=== PATIENT | female | born 1985 | race Hispanic/Latino ===

== ENCOUNTER 2019-10-05 20:58 | Inpatient (IN) | payer OTHER, SELFPAY ==
--- NOTE | 2019-10-05 21:00 | PC.NURSE ---
Pt arrived via ambulance, transfer from [facility] ED. Pt was 5cm in the ED at [facility]. Pt is Mongolian speaking only. 15yr old daughter with her to help translate. Avis used to translate upon admission. [facility] denies having information.
[2019-10-05] MEDS: AMPICILLIN 2 GM/NS 100 ML 2 GM/100 ML BAG IVPB (21:41)
[2019-10-05] MEDS: LACTATED RINGERS 1,000 ML 125 ML IV CONT (21:49)
[2019-10-05 22:02] VITALS: BP 105/80; PULSE 78
[2019-10-05 22:24] VITALS: BMI 29.9
--- NOTE | 2019-10-05 22:27 | LDADM ---
This patient, Pauline Lindsay, was admitted to Labor/Delivery/Recovery 105 on 10/05/19 at 20:58. Plans for labor, pain management and were discussed with patient. Patient/family oriented to hospital policies and general routines including ID bracelet, bed and alarms, visiting hours, pain management, procedures, bathroom and other care routines, personal items, smoking policy, room service/diet and guest tray routines, security routines, and visiting hours. Patient/Family are encouraged to report perceived risks to care and to ask questions if they do not understand what they are told or what they should do. See OBIX for further documentation.
[2019-10-05 22:33] LABS: Basophils Percent Auto 0.2 % (0.2-1.2); Eosinophils Percent Auto 0.4 % (0-4.4); Hematocrit 31.6 % (37.0-47.0); Hemoglobin 10.3 g/dL (12.0-15.0); Immature Granulocyte Absolute 0.09 K/mm3 (0.00-0.031); Immature Granulocyte Percent A 1.6 % (0-0.5); Lymphocytes Absolute Auto 1.13 K/mm3 (0.9-3.2); Lymphocytes Percent Auto 19.9 % (18.3-44.2); Mean Corpuscular HGB Conc 32.6 g/dl (32-36); Mean Corpuscular Hemoglobin 27.5 pg (26-34); Mean Corpuscular Volume 84.5 fl (80-100); Mean Platelet Volume 10.3 fl (7.4-10.4); Monocytes Absolute Auto 0.6 K/mm3 (0.1-0.6); Monocytes Percent Auto 9.9 % (2.6-8.5); Neutrophils Absolute Auto 3.9 K/mm3 (1.3-6.7); Platelet Count Result 402 k/mm3 (150-375); Red Blood Count 3.74 M/mm3 (4.2-5.4); Red Cell Distribution Width 15.1 % (11.5-14.5); White Blood Count 5.7 K/mm3 (4.5-10.0)
--- NOTE | 2019-10-05 22:39 | PC.NURSE ---
Pt states she was seeing a ophthalmic lens inspector for her heart. States something weird was happening with it. States at last appointment they said everything was fine and nothing was wrong. States she has an upcoming appointment.
[2019-10-05 22:53] VITALS: BP 109/75; PULSE 77
[2019-10-05 23:01] VITALS: BP 114/82; PULSE 82
[2019-10-05 23:29] LABS: HIV 1/2 Ab P24 Ag Result Negative (Negative)
[2019-10-05 23:30] VITALS: TEMP 36.3
[2019-10-05 23:31] VITALS: BP 105/73; PULSE 75
[2019-10-05 23:46] LABS: Rubella IgG Antibody 20.9 IU/ML
[2019-10-05 23:49] LABS: Hepatitis B Surface Antigen Negative (Negative)
[2019-10-06] VITALS (21 sets, daily range): BP systolic 98–128; BP diastolic 52–85; PULSE 57–78; RESP 12–18; TEMP 36.4–37; O2SAT 98
[2019-10-06] MEDS: AMPICILLIN 1 GM/NS 50 ML 1 GM/50 ML BAG IVPB (01:46)
[2019-10-06] MEDS: OXYTOCIN 30 UNITS/NS 500 ML 30 UNITS/500 ML BAG 999 UNITS IV CONT (04:30)
--- NOTE | 2019-10-06 04:44 | WPDHPUPDATE1 ---
History and Physical Update Update Date/Time: 10/06/19 04:44 History and Physical has been reviewed, including an updated exam of the patient. There are NO changes in the patient's condition. Risks, benefits, and alternatives have been discussed and questions answered. Patient agrees to proceed with procedure.
--- NOTE | 2019-10-06 04:44 | WPDOBADMIT ---
Obstetrics - Admit Note Admission Note: record reviewed. No pertinent additions to the history and/or any subsequent changes in the physical findings that are not consistent with the expected course of the were found. Additions to the history and/or subsequent changes in the physical findings follow. None.
--- NOTE | 2019-10-06 04:45 | P.PCNOB_ITS ---
OB - Delivery Note Procedure events: Labor < 37 Weeks Induction method: none Route of delivery: Laceration description: Vaginal - 2nd Degree Delivery repair: chromic Specimen: Yes (placenta) Estimated blood loss (mL): 200 Anesthesia type: Local Disposition: floor Narrative: Patient prepped and draped in usual manner for this procedure. Maternal expulsive efforts readily delivered vertex on the rest of baby delivered as well. Cord was clamped, placenta delivered spontaneously. Uterus was well contracted. Cervix vagina and vulva were inspected with a second- degree midline laceration noted. This was injected with lidocaine and closed using 2 0 chromic to close the vaginal tissue in a running interlocking manner the deep tissue was approximated in subcuticular layer then used to vomit approximate the skin edges. This point seizure was considered terminated patient are procedure well immediate postop condition mother and baby were both excellent. Baby Weeks of gestation at delivery: 36 gender: Female Weight (pounds): 6 Weight (ounces): 11 score one minute: 9 score five minutes: 9
[2019-10-06] MEDS: OXYTOCIN 30 UNITS/NS 500 ML 30 UNITS/500 ML BAG 125 UNITS IV CONT (05:07)
[2019-10-06] MEDS: ACETAMINOPHEN 325 MG TABLET 650 MG PO (05:46)
--- NOTE | 2019-10-06 07:51 | PC.NURSE ---
0712- called, informed pt delivered vaginally this morning by . No new orders received.
--- NOTE | 2019-10-06 10:46 | PC.NURSE ---
0726-Patient transferred to post room #290 via wheelchair. Support person present. Oriented to unit, room, information board, rooming in, admission packet and security measures. Patient verbalizes understanding.
[2019-10-06 13:34] LABS: Rapid Plasma Reagin Non-Reactive (NonReactive)
[2019-10-07 05:11] LABS: Hematocrit 28.7 % (37.0-47.0); Hemoglobin 9.4 g/dL (12.0-15.0)
[2019-10-07 07:30] VITALS: BP 104/64; PULSE 56; RESP 18; TEMP 36.9; O2SAT 95
--- NOTE | 2019-10-07 07:44 | PM.OBPNVD ---
OB - PN: Subj Subjective Date/time seen: 10/07/19 07:44 34yoHF G5 now P5 s/p NSVVD by Dr Werner on 10/06/19 @0428am of a viable female no complaints Interval history: Desires to go home no complaints will wait for interval tubal sterilization Patient comments: no complaints, pain well controlled, tolerating diet and flatus present [place] baby status: doing well and bottle feeding well [place] feeding status: exclusively bottle feeding OB - PN: Obj Data Labs CBC & Chem 7: 10/07/19 04:48 Labs: Laboratory Results - last 24 hr 10/05/19 10/07/19 22:19 04:48 Hgb 9.4 L Hct 28.7 L RPR Non-reactive OB - PN A/P Plan day: 1 Plan: routine care, discharge home and follow up 6 weeks Time Spent With Patient Time: Total time spent is greater than 50% in coordination of care (as documented) at patient's floor/unit and/or counseling patient: Time with patient: 15 - 25 minutes Review of Systems Review of Systems: All systems reviewed & are unremarkable except as noted in HPI and below Constitutional: Constitutional: Reports as per HPI and Reports no additional constitutional complaints ENT: Reports system reviewed and no additional complaints, except as documented Cardiovascular: Cardiovascular: Reports no additional cardiovascular complaints Respiratory: Respiratory: Reports no additional respiratory complaints Gastrointestinal: Gastrointestinal: Reports no additional gastrointestinal complaints Genitourinary: Genitourinary: Reports no additional female genitourinary complaints Musculoskeletal: Musculoskeletal: Reports no additional musculoskeletal complaints Integumentary/Breasts: Skin/Breast: Reports system reviewed and no additional complaints, except as docu Neurologic: Reports system reviewed and no additional complaints, except as documented Psychiatric: Psychiatric: Reports no additional psychiatric complaints Endocrine: Endocrine: Reports no additional endocrine complaints Hematologic/Lymphatic: Hematologic/Lymphatic: Reports no additional hematologic/lymphatic complaints Allergic/Immunologic: Allergic/Immunologic: Reports no additional allergic/immunologic complaints Exam Const: General: comfortable, no acute distress, alert and awake HENMT: Head: normal to inspection Eyes: General: appearance normal, both eyes and all related structures Neck: Neck: normal visual inspection Chest: Breast/axilla inspection: normal inspection of the breasts Breast/axilla palpation: normal palpation of the breasts Resp: Effort & Inspection: normal respiratory effort Auscultation: clear to auscultation bilaterally Cardio: Rate: regular rate GI: Auscultation: normal bowel sounds : General: Yes no CVA tenderness External Female Exam: normal external appearance Back/Spine/Pelvis: Back: no CVA tenderness Skin: General skin exam: normal color Neuro: General: oriented to person, oriented to place, oriented to time and patient oriented x3 Speech: normal speech Motor exam (neuro): 5/5 motor strength present throughout Sensory Exam: normal sensation Extrem: General: normal to inspection and full ROM Right lower extremity: normal to inspection and full ROM Left lower extremity: normal to inspection and full ROM Psych: Appearance: grossly normal and well kempt Mental Status: mental status grossly normal Affect: normal affect Attitude: cooperative Judgement: Good judgement present (Psych)
--- NOTE | 2019-10-07 08:30 | PM.OBDSVD ---
DS: Admitting Diagnosis Admitting Diagnosis Admitting Diagnosis: Term active labor DS: Discharge Diagnosis Discharge Diagnosis (1) Term delivered: Code(s): O80 - Encounter for full-term uncomplicated delivery Status: Acute OB - DS: Summary OB Procedures : Ultrasound OB Procedures Intrapartum: Spontaneous Vag Delivery OB Procedures: : None Time Spent with Patient Time attestation: Total time spent providing and/or coordinating discharge services:20 min Exam Const: General: comfortable, no acute distress, alert and awake Chest: Breast/axilla inspection: normal inspection of the breasts Resp: Effort & Inspection: normal respiratory effort Cardio: Rate: regular rate GI: GI Palp: Yes Soft to palpation Percussion: Yes normal to percussion Auscultation: normal bowel sounds : General: Yes bladder normal to inspection Psych: Appearance: grossly normal and well kempt DS: Data Data Completed and Pending Pending studies at discharge: Pending at discharge 10/06/19 04:32 Surgical [PTH] Routine Labs on day of discharge: Labs from last 24 hours 10/07/19 10/05/19 04:48 22:19 Hgb 9.4 L Hct 28.7 L RPR Non-reactive Discharge Plan Discharge Attending physician on discharge: Dawit Hamlin Discharging Clinician: Dawit Hamlin Anticipated Discharge Date/Time: 10/07/19 08:29 Patient Disposition: Home, Self-Care Activity: may shower, may drive after 2 weeks and pelvic rest Diet: as tolerated and regular Wound Care Instructions: follow printed instructions Discharge Instructions: OB ANTEPARTUM DISCHARGE INSTRUCTIONS This information is given to help you properly care for yourself at home after your discharge from the hospital. Follow these instructions until your doctor tells you otherwise. DIET: Additional Diet Instructions: ACTIVITY: Additional Activity Instructions: RETURN TO LABOR AND DELIVERY IF YOU HAVE: Additional Reasons to Return to Labor and Delivery: Contractions may feel like abdominal pain, tightening, cramping, pressure, back ache, or thigh ache. 24 Hour Urine Collection: Continue 24 hour urine collection until at . When collection is completed, return specimen to the [facility]. See handout for 24 hour urine collection. OTHER INSTRUCTIONS: FOLLOW-UP CARE: To see in/on Valuables released to patient or family? Medications from home returned to patient? IF YOU HAVE ANY QUESTIONS REGARDING THESE INSTRUCTIONS, PLEASE CALL [phone]. IF PROBLEMS ARISE, CALL YOUR PROVIDER. IF EMERGENCY CARE IS NEEDED, [facility]S EMERGENCY ROOM IS AVAILABLE 24 HOURS A DAY. Stand Alone Forms: General Discharge Information Follow-up/Referrals: Dawit Hamlin MD [Physician] - 3 Weeks Discharge Medications: New polysaccharide iron complex 150 mg iron Capsule 150 mg PO BIDWM Qty: 90 RF: 3 ibuprofen 600 mg Tablet 600 mg PO Q6H PRN (Reason: Cramping) 30 Days Qty: 90 RF: 1 KPN Tablet 1 tab PO DAILY 30 Days Qty: 90 RF: 0 Date of admission: 10/05/19 20:58 Primary Care Provider: Adán,Eusebio Admitting Provider: Dawit Hamlin Attending physician on admission: Dawit Hamlin Condition: Stable
[2019-10-07] MEDS: DOCUSATE SODIUM 100 MG CAPSULE PO (08:41)
[2019-10-07] MEDS: IBUPROFEN 600 MG TABLET PO (08:41)
[2019-10-07] MEDS: MULTIVIT/MIN/PREN/FOL AC/IRON TABLET 1 TAB PO (08:41)
[2019-10-07] MEDS: POLYSACCHARIDE IRON COMPLEX 150 MG CAPSULE PO (08:41)
--- NOTE | 2019-10-07 18:56 | PC.NURSE ---
1320 Pt's reeceugher translated discharge instructions for pt as nurse read through them; pt voiced understanding.
[2019-10-08 09:31] VITALS: BP 99/71; PULSE 67; RESP 16; TEMP 36.5; O2SAT 99
== END 2019-10-07 14:11 | disposition home or self-care (01) | DRG 560 ==
LOC: ANHLDR 22:33 → ANHOB2 10-06 07:34
PROVIDERS: Admitting Provider Obstetrics & Gynecology; PCP Registered Nurse; Visit Provider Obstetrics & Gynecology
DX: O60.14X0 Preterm labor third trimester with preterm delivery third trimester, not applicable or unspecified (principal); Z37.0 Single live birth; Z3A.36 36 weeks gestation of pregnancy; O70.1 Second degree perineal laceration during delivery; O77.0 Labor and delivery complicated by meconium in amniotic fluid
CPT/HCPCS: 36415; 85014; 85018; 85025; 86592; 86703; 86762; 86850; 86900; 86901; 87340; 88307; A9270; G0432; J0290; J2590; J3010; J7120

== ENCOUNTER 2025-03-02 12:24 | Emergency (ER) | payer SELFPAY ==
--- NOTE | ~2025-03-02 | XR_ITS ---
EXAMINATION: XR chest 2V, 03/02/2025 13:02 EMBOSSING MACHINE OPERATOR HISTORY: midsternal chest pain X today COMPARISON: No comparisons available. Technique: 2 views obtained. Findings: The lungs are clear, no effusion. No pneumothorax. Heart is normal size. Mediastinal and hilar contours are within normal limits. Bony thorax no acute abnormality. Impression: No acute cardiopulmonary abnormality. Reviewed, dictated and finalized at location P. SSING MACHINE OPERATOR Impression: No acute cardiopulmonary abnormality.
--- NOTE | 2025-03-02 12:27 | ECG_ITS ---
Test Date: 2025-03-02 12:43:06 Measurements Intervals [place] Rate: 76 P: 41 MT: 173 QRS: 15 QRSD: 71 T: 12 QT: 350 QTc: 396 Interpretive Statements SINUS RHYTHM NONSPECIFIC T-WAVE ABNORMALITY POOR R-WAVE PROGRESSION ABNORMAL ECG No previous ECG available for comparison Electronically Signed On 03-02-2025 13:58:04 PLASTIC SHEETING CUTTER by Enmanuel Sierra M.D.
[2025-03-02 12:45] VITALS: BP 118/75; PULSE 72; RESP 17; TEMP 36.4; O2SAT 100
[2025-03-02 13:04] LABS: Hematocrit 40.4 % (37.0-47.0); Hemoglobin 13.3 g/dL (12.0-15.0); Immature Granulocyte Percent A 0.4 % (0-0.5); Lymphocytes Absolute Auto 1.78 K/mm3 (0.9-3.2); Mean Corpuscular HGB Conc 32.9 g/dl (32-36); Mean Corpuscular Hemoglobin 29.0 pg (26-34); Mean Corpuscular Volume 88.0 fl (80-100); Nucleated Red Blood Cells Absolute Auto 0.000 K/mm3 (0.0-0.012); Nucleated Red Blood Cells Perc 0.0 % (0.0-0.2); Platelet Count Result 297 k/mm3 (150-375); Red Blood Count 4.59 M/mm3 (4.2-5.4); White Blood Count 5.7 K/mm3 (4.5-10.0)
[2025-03-02 13:10] LABS: INR 1.1; Prothrombin Time 13.7 Seconds (11.1-14.7)
[2025-03-02 13:11] LABS: Alanine Aminotransferase 21 U/L (6-35); Albumin Level 4.2 g/dL (3.5-5.1); Alkaline Phosphatase 84 U/L (38-126); Anion Gap 7 mmol/L (4-12); Aspartate Amino Transferase 27 U/L (14-36); Bilirubin,Total 0.9 mg/dL (0.2-1.3); Blood Urea Nitrogen 13 mg/dL (7-17); Calcium 9.1 mg/dL (8.4-10.2); Carbon Dioxide 22 mmol/L (22-30); Chloride 106 mmol/L (98-107); Estimated Glomerular Filt Rate > 60; Glucose 122 mg/dL (65-110); Lipase 74 U/L (23-300); Partial Thromboplastin Time 27.5 Seconds (22.3-36.8); Potassium 3.5 mmol/L (3.4-5.0); Sodium 135 mmol/L (137-145); Total Protein 7.6 g/dL (6.3-8.2)
[2025-03-02 13:22] LABS: Troponin I < 0.012 ng/mL (0.000-0.034)
--- NOTE | 2025-03-02 13:34 | ED_ITS ---
HPI - Chest Pain General Chief Complaint: Chest Pain <Imelda Keith PA-C - Last Filed: 03/02/25 18:57> Stated Complaint: chest pain <Imelda Keith PA-C - Last Filed: 03/02/25 18:57> Time Seen by Provider: 03/02/25 13:34 <Imelda Keith PA-C - Last Filed: 03/02/25 18:57> Focused HPI: This is a 39 year old female that presents to the ER for chest pain. Ongoing over the last couple of hours. No other associated symptoms. No active medical problems. Pain is substernal, non-severe. GENERAL: Well-appearing, well-nourished, and in no acute distress. HEAD: Normocephalic, atraumatic. CHEST: Clear to auscultation. ?No respiratory distress. HEART: Regular rate and rhythm.? NEURO: ?Alert and oriented x3. Patient screened in triage and initial orders placed.? ?Additional care and disposition to be based upon?diagnostic testing and treatment. <Imelda Keith PA-C - Last Filed: 03/02/25 18:57> History of Present Illness HPI narrative: Agree with HPI. 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 No productive cough. No fevers chills or sweats. No alleviating factors. No history of heart disease. No leg swelling. <Malcolm Dia MD - Last Filed: 03/02/25 18:08> Related Data Allergies/Adverse Reactions: Allergies Allergy/AdvReac Type Severity Reaction Status Date / Time No Known Allergies Allergy Uncoded 05/06/19 13:32 <Imelda Keith PA-C - Last Filed: 03/02/25 18:57> Review of Systems 2 Review of Systems: All systems reviewed & are unremarkable except as noted in HPI and below <Malcolm Dia MD - Last Filed: 03/02/25 18:08> Constitutional: Constitutional: Reports no additional constitutional complaints <Malcolm Dia MD - Last Filed: 03/02/25 18:08> Cardiovascular: Cardiovascular: Reports no additional cardiovascular complaints <Malcolm Dia MD - Last Filed: 03/02/25 18:08> Respiratory: Respiratory: Reports no additional respiratory complaints < Malcolm Dia MD - Last Filed: 03/02/25 18:08> Gastrointestinal: Gastrointestinal: Reports no additional gastrointestinal complaints <Malcolm Dia MD - Last Filed: 03/02/25 18:08> PMFSH Past Medical History Medical History: Medical History (Updated 03/02/25 @ 18:02 by Malcolm Dia MD) Anemia <Imelda Keith PA-C - Last Filed: 03/02/25 18:57> Surgical History Surgical History: Surgical History (Updated 03/02/25 @ 18:00 by Malcolm Dia MD) History of cholecystectomy <Imelda Keith PA-C - Last Filed: 03/02/25 18:57> Family History Family History: Family History (Updated 10/07/19 @ 07:41 by Dawit HamlinMD) Mother No problems noted. Father No problems noted. <Imelda Keith PA-C - Last Filed: 03/02/25 18:57> Social History Social History: Social History (System 05/06/19 @ 13:32 by Yvonne Alejo) Smoking status: Never smoker Alcohol intake: never Substance use: never Gender identity (if verbalized by the patient): Female Spiritual care concerns: No <Imelda Keith PA-C - Last Filed: 03/02/25 18:57> Exam 2 Narrative: GENERAL: Well-appearing, well-nourished, and in no acute distress. HEAD: Normocephalic, atraumatic. ENT: Mucous membranes moist. CHEST: Clear to auscultation. No respiratory distress. HEART: Regular rate and rhythm. Normal peripheral pulses. ABDOMEN: Soft, nontender, nondistended. EXTREMITIES: Normal range of motion. No edema. SKIN: Warm, dry, no rash. NEURO: Alert and oriented x3. PSYCH: Normal mood and affect. <Malcolm Dia MD - Last Filed: 03/02/25 18:08> Course Course Emergency Course: Troponin negative x2. D-dimer negative. Chest x-ray unremarkable. Musculoskeletal pain. Discharge. <Malcolm Dia MD - Last Filed: 03/02/25 18:08> Vital Signs Vital signs: Vital Signs Temperature 97.6 F 03/02/25 12:45 Pulse Rate 72 03/02/25 12:45 Respiratory Rate 17 03/02/25 12:45 Blood Pressure 118/75 03/02/25 12:45 Pulse Oximetry 100 03/02/25 12:45 Temperature 97.9 F 03/02/25 17:24 Pulse Rate 69 03/02/25 18:38 Respiratory Rate 12 03/02/25 18:38 Blood Pressure 104/68 03/02/25 18:38 Pulse Oximetry 100 03/02/25 18:38 Oxygen Delivery Room Air 03/02/25 14:57 <Imelda Keith PA-C - Last Filed: 03/02/25 18:57> Vital Signs Temperature 97.6 F 03/02/25 12:45 Pulse Rate 72 03/02/25 12:45 Respiratory Rate 17 03/02/25 12:45 Blood Pressure 118/75 03/02/25 12:45 Pulse Oximetry 100 03/02/25 12:45 Temperature 97.9 F 03/02/25 17:24 Pulse Rate 69 03/02/25 18:38 Respiratory Rate 12 03/02/25 18:38 Blood Pressure 104/68 03/02/25 18:38 Pulse Oximetry 100 03/02/25 18:38 Oxygen Delivery Room Air 03/02/25 14:57 <Malcolm Dia MD - Last Filed: 03/02/25 18:08> MDM - Chest Pain Differential Diagnosis Differential diagnosis: Likely fracture of rib, pneumothorax, stable angina, unstable angina pectoris, atypical chest pain, st elevation myocardial infarction, costochondritis, chest pain and biliary colic <Malcolm Dia MD - Last Filed: 03/02/25 18:08> Lab Data Attestation: I reviewed the patient's lab results. <Malcolm Dia MD - Last Filed: 03/02/25 18:08> Result diagrams: 03/02/25 12:50 03/02/25 12:50 <Imelda Keith PA-C - Last Filed: 03/02/25 18:57> Labs: Lab Results 11/24/25 11/24/25 11/24/25 Range/Units 12:50 15:39 16:36 WBC 5.7 (4.5-10.0) K/mm3 RBC 4.59 (4.2-5.4) M/mm3 Hgb 13.3 D (12.0-15.0) g/dL Hct 40.4 (37.0-47.0) % MCV 88.0 (80-100) fl MCH 29.0 (26-34) pg MCHC 32.9 (32-36) g/dl RDW 12.5 (11.5-14.5) % Plt Count 297 (150-375) k/mm3 MPV 10.8 H (7.4-10.4) fl Immature Gran % (Auto) 0.4 (0-0.5) % Neut % (Auto) 60.1 (45.5-73.1) % Lymph % (Auto) 31.4 (18.3-44.2) % [place] % (Auto) 5.8 (2.6-8.5) % Eos % (Auto) 1.6 (0-4.4) % Baso % (Auto) 0.7 (0.2-1.2) % Lymph # (Auto) 1.78 (0.9-3.2) K/mm3 [place] # (Auto) 0.3 (0.1-0.6) K/mm3 Eos # (Auto) 0.1 (0-0.3) K/mm3 Baso # (Auto) 0.0 (0.0-0.1) K/mm3 Abs Immat Gran (auto) 0.02 (0.00-0.031) K/mm3 Absolute Neuts (auto) 3.4 (1.3-6.7) K/mm3 Absolute Nucleated RBC 0.000 (0.0-0.012) K/mm3 Nucleated RBC % 0.0 (0.0-0.2) % PT 13.7 (11.1-14.7) Seconds INR 1.1 APTT 27.5 (22.3-36.8) Seconds D-Dimer < 0.27 (<0.48) ug/mL Sodium 135 L (137-145) mmol/L Potassium 3.5 (3.4-5.0) mmol/L Chloride 106 (98-107) mmol/L Carbon Dioxide 22 (22-30) mmol/L Anion Gap 7 (4-12) mmol/L BUN 13 (7-17) mg/dL Creatinine 0.63 L (0.7-1.0) mg/dL Estim Creat Clear Calc Not Reportable Estimated GFR > 60 (59 - ) Glucose 122 H (65-110) mg/dL Calcium 9.1 (8.4-10.2) mg/dL Total Bilirubin 0.9 (0.2-1.3) mg/dL AST 27 (14-36) U/L ALT 21 (6-35) U/L Alkaline Phosphatase 84 (38-126) U/L Troponin I < 0.012 < 0.012 (0.000-0.034) ng/mL Total Protein 7.6 (6.3-8.2) g/dL Albumin 4.2 (3.5-5.1) g/dL Lipase 74 (23-300) U/L <Imelda Keith PA-C - Last Filed: 03/02/25 18:57> Lab Results 03/02/25 03/02/25 03/02/25 Range/Units 12:50 15:39 16:36 WBC 5.7 (4.5-10.0) K/mm3 RBC 4.59 (4.2-5.4) M/mm3 Hgb 13.3 D (12.0-15.0) g/dL Hct 40.4 (37.0-47.0) % MCV 88.0 (80-100) fl MCH 29.0 (26-34) pg MCHC 32.9 (32-36) g/dl RDW 12.5 (11.5-14.5) % Plt Count 297 (150-375) k/mm3 MPV 10.8 H (7.4-10.4) fl Immature Gran % (Auto) 0.4 (0-0.5) % Neut % (Auto) 60.1 (45.5-73.1) % Lymph % (Auto) 31.4 (18.3-44.2) % [place] % (Auto) 5.8 (2.6-8.5) % Eos % (Auto) 1.6 (0-4.4) % Baso % (Auto) 0.7 (0.2-1.2) % Lymph # (Auto) 1.78 (0.9-3.2) K/mm3 [place] # (Auto) 0.3 (0.1-0.6) K/mm3 Eos # (Auto) 0.1 (0-0.3) K/mm3 Baso # (Auto) 0.0 (0.0-0.1) K/mm3 Abs Immat Gran (auto) 0.02 (0.00-0.031) K/mm3 Absolute Neuts (auto) 3.4 (1.3-6.7) K/mm3 Absolute Nucleated RBC 0.000 (0.0-0.012) K/mm3 Nucleated RBC % 0.0 (0.0-0.2) % PT 13.7 (11.1-14.7) Seconds INR 1.1 APTT 27.5 (22.3-36.8) Seconds D-Dimer < 0.27 (<0.48) ug/mL Sodium 135 L (137-145) mmol/L Potassium 3.5 (3.4-5.0) mmol/L Chloride 106 (98-107) mmol/L Carbon Dioxide 22 (22-30) mmol/L Anion Gap 7 (4-12) mmol/L BUN 13 (7-17) mg/dL Creatinine 0.63 L (0.7-1.0) mg/dL Estim Creat Clear Calc Not Reportable Estimated GFR > 60 (59 - ) Glucose 122 H (65-110) mg/dL Calcium 9.1 (8.4-10.2) mg/dL Total Bilirubin 0.9 (0.2-1.3) mg/dL AST 27 (14-36) U/L ALT 21 (6-35) U/L Alkaline Phosphatase 84 (38-126) U/L Troponin I < 0.012 < 0.012 (0.000-0.034) ng/mL Total Protein 7.6 (6.3-8.2) g/dL Albumin 4.2 (3.5-5.1) g/dL Lipase 74 (23-300) U/L <Malcolm Dia MD - Last Filed: 03/02/25 18:08> Imaging Data Radiologist's impression: ITS Impressions Chest X-Ray 03/02/25 13:19 Impression: No acute cardiopulmonary abnormality. <Malcolm Dia MD - Last Filed: 03/02/25 18:08> Discharge Plan Discharge Clinical Impression: Chest wall pain <Imelda Keith PA-C - Last Filed: 03/02/25 18:57> Patient Disposition: Home <Imelda Keith PA-C - Last Filed: 03/02/25 18:57> Condition: Stable <Imelda Keith PA-C - Last Filed: 03/02/25 18:57> Instructions: Chest Wall Pain (ED) <Imelda Keith PA-C - Last Filed: 03/02/25 18:57> Additional Instructions: Please return to the emergency department if you develop severe and persistent chest pain, difficulty breathing, dizziness, leg swelling or if you are coughing up blood as these can be signs of a medical emergency. Please call your doctor for a follow up appointment to determine the need for further testing. <Imelda Keith PA-C - Last Filed: 03/02/25 18:57> Patient Language: Indian <Imelda Keith PA-C - Last Filed: 03/02/25 18:57> Prescriptions: New naproxen 375 mg tablet 375 mg PO BID Qty: 14 0RF No Action polysaccharide iron complex 150 mg iron Capsule 150 mg PO BIDWM Qty: 90 3RF ibuprofen 600 mg Tablet 600 mg PO Q6H PRN (Reason: Cramping) 30 Days Qty: 90 1RF KPN Tablet 1 tab PO DAILY 30 Days Qty: 90 0RF <Imelda Keith PA-C - Last Filed: 03/02/25 18:57> Follow-up/Referrals: Adán,ELDON Kaplan [Primary Care Provider] - 1 Week <BRITNEY Rollins Last Filed: 03/02/25 18:57>
[2025-03-02] MEDS: FAMOTIDINE 20 MG/2 ML VIAL IV PUSH (14:01)
[2025-03-02] MEDS: ASPIRIN 81 MG CHEWABLE TABLET 324 MG PO (14:01)
[2025-03-02 14:04] VITALS: BP 107/83; PULSE 77; RESP 18; O2SAT 97
--- OUTSIDE RECORDS SUMMARY | 2025-03-02 14:12 | XMS_ITS | Clinical Summary ---
Author Organization [facility] Address [address] [place] [address] Care Team Providers Care Production Drilling Machine Operator Name Role Phone Eusebio Mccain JOURNEYMAN POWERHOUSE OPERATOR-MODELING INSTRUCTOR Primary Care Pro vider Source Comments [facility],non-owned Affiliates and Associated Physician Practices is amultiple site organization consisting of ambulatory clinics and hospital sitesin [place], [place], [place] and [place]. This disclosure is being madepursuant to the Care Everywhere program and may not contain all information available regarding this patient. 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 Overview (04/23/2019): Pt to see chemical analyst Acidosis 12/30/2016 Acute biliary pancreatitis without infection or necrosis 12/30/2016 Cholangitis 12/28/2016 Resolved Problems Problem Noted Date Diagnosed Date Resolved Date Abdominal pain 12/31/2016 04/23/2019 Immunizations Immunization Administration Dates Next Due FLU VACCINE TRI IIV3 SPLIT PF IM (FLUVIRIN) 04/2016 Social History Tobacco Use Types Packs/Day Years Used Date Smoking Tobacco: Never Smokeless Tobacco: Never Alcohol Use Standard Drinks/Week Comments No 0 (1 standard drink = 0.6 oz pur e alcohol) Comments No Sex and Gender Information Value Date Recorded Sex Assigned at Not on file 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 Gender Identity Not on file Sexual Orientation Not on file Last Filed Vital Signs Vital Sign Reading Time Taken Comments Blood Pressure 90/62 01/07/2017 7:38 AM CDT Pulse 62 01/07/2017 7:38 AM CDT Temperature 36.4 C (97.5 F) 07/08/2019 10:30 AM CDT Respiratory Rate 16 01/07/2017 7:38 AM CDT Oxygen Saturation 96% 01/07/2017 7:38 AM CDT Inhaled Oxygen Concentration - - Weight 64.4 kg (142 lb) 06/02/2019 5:36 PM BARROW WORKER HELPER Height 152.4 cm (5') 12/28/2016 3:34 AM CDT Body Mass Index 27.73 12/28/2016 3:34 AM CDT Plan of Treatment Health Maintenance Due Date Last Done Comments HIV SCREENING 2000 HEPATITIS C SCREENING 09/06/2003 DTAP/TDAP/TD VACCINES (1 - Tdap) 2004 HEPATITIS B VACCINE (1 of 3 - 19+ 3-dose series) 2004 Cervical Cancer Screening 2006 PAP SMEAR 2006 HPV VACCINE (1 - 3-dose SCDM series) 2012 PAP with HPV 09/11/2015 DEPRESSION SCREENING 04/09/2024 COVID-19 VACCINE (1 - 2024-2 6 season) 2024 INFLUENZA VACCINE (#1) 2024 01/07/2017 ZOSTER VACCINE (1 of 2) 09/11/2035 HIB VACCINE Aged Out No longer eligi ble based on patient's age to complete this topic MENINGOCOCCAL (Group B) VACC INE SHARED DECISION-MAKING Aged Out No longer eligibl e based on patient's age to complete this topic MENINGOCOCCAL GROUPS A/C/Y/W VACCINE Aged Out No longer eligible b ased on patient's age to complete this topic PNEUMOCOCCAL VACCINE Aged Out No long er eligible based on patient's age to complete this topic Care Teams Production Drilling Machine Operator Relationship Specialty Start Date End Date Eusebio Mccain, RISHABH-BELLA [address] [place] [id number] PCP - General Nurse Practitioner 04/28/19
--- OUTSIDE RECORDS SUMMARY | 2025-03-02 14:12 | XMS_ITS | Clinical Summary ---
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 I do not have these images to review. The read is for a possible L coronary arising posteriorly, extending between the aorta and LA. This would not be expected to be a malignant variant or to likely cause cardiac symptoms. Given the uncertainty of the diagnosis and her state, I would prefer to avoid unnecessary radiation with a cardiac CT at this time. We will proceed with an exercise treadmill stress test to ensure no evidence of ischemia. This is safe to perform during . Following delivery, we will perform a gated cardiac CT in late October to definitively define her coronary anatomy for future risk stratification. History of obesity 05/29/2019 Assessment & Plan (05/29/2019 4:19 PM PERISHABLE FREIGHT INSPECTOR): Work on diet and exercise after delivery. Precordial pain 05/29/2019 Assessment & Plan (05/29/2019 4:19 PM PERISHABLE FREIGHT INSPECTOR): I suspect that her pain was referred from her retained biliary stent. However, she did have some exertional components to it. I would like to proceed with exercise stress test to rule out any underlying ischemia given the question of an anomalous coronary artery. 05/29/2019 Assessment & Plan (05/29/2019 4:20 PM PERISHABLE FREIGHT INSPECTOR): She has had 4 prior successful pregnancies. If her stress test is wnl, she will be at low risk for major cardiovascular events. At this time, there is no cardiac contraindication to regional anesthesia or vaginal delivery. Social History Tobacco Use Types Packs/Day Years Used Date Smoking Tobacco: Never Assessed Comments Unknown Sex and Gender Information Value Date Recorded Sex Assigned at Not on file Legal Sex Female 11:46 AM CDT Gender Identity Not on file Sexual Orientation Not on file Last Filed Vital Signs Vital Sign Reading Time Taken Comments Blood Pressure 95/60 06/27/2019 8:15 AM CDT Pulse 84 06/27/2019 8:15 AM CDT Temperature - - Respiratory Rate - - Oxygen Saturation 99% 05/29/2019 11:35 AM PERISHABLE FREIGHT INSPECTOR Inhaled Oxygen Concentration - - Weight 66 kg (145 lb 8.1 oz) 12/02/2019 2:26 PM CDT Height 147.3 cm (4' 10) 12/02/2019 2:26 PM CDT Body Mass Index 30.41 12/02/2019 2:26 PM CDT Plan of Treatment Not on file Care Teams Copper Miner Blasting Relationship Specialty Start Date End Date Eusebio Mccain NP PCP - General Nurse Practitioner 01/10/19
--- OUTSIDE RECORDS SUMMARY | 2025-03-02 14:12 | XMS_ITS | Encounter Summary ---
Author Organization [facility] Healthcare Address [address] [place] [address] Care Team Providers Care Electronics Manufacturer Name Role Phone Eusebio Mccain NP Primary Care Provider [phone] Encounter Details Date Type Department Care Team (Late st Contact Info) Description 12/01/2019 Telephone [facility] [address] [place] [id number] Carlos Olivares, RT Social History Tobacco Use Types Packs/Day Years Used Date Smoking Tobacco: Never Assessed Comments Unknown Sex and Gender Information Value Date Recorded Sex Assigned at Not on file Legal Sex Female 11:46 AM CDT Gender Identity Not on file Sexual Orientation Not on file documented as of this encounter Plan of Treatment Not on file documented as of this encounter Visit Diagnoses Not on filedocumented in this encounter Care Teams Electronics Manufacturer Relationship Specialty Start Date End Date Eusebio Mccain NP PCP - General Nurse Practitioner 01/10/19 documented as of this encounter
[2025-03-02 14:57] VITALS: BP 103/60; PULSE 63; RESP 15; O2SAT 100
[2025-03-02] MEDS: KETOROLAC 30 MG/ML VIAL (*BKC) IV PUSH (15:51)
--- NOTE | 2025-03-02 16:47 | ECG_ITS ---
Test Date: 2025-03-02 16:53:40 Measurements Intervals [place] Rate: 60 P: 42 IN: 175 QRS: 24 QRSD: 88 T: 19 QT: 413 QTc: 413 Interpretive Statements SINUS RHYTHM Electronically Signed On 03-03-2025 05:51:33 STATISTICAL METHODS TEACHER by Micha Nieves D.O
--- OUTSIDE RECORDS SUMMARY | 2025-03-02 16:55 | XMS_ITS | Encounter Summary ---
Author Organization [facility] Healthcare Address [address] [place] [address] Care Team Providers Care Grinder And Plater Name Role Phone Eusebio Mccain NP Primary Care Provider [phone] Encounter Details Date Type Department Care Team (Late st Contact Info) Description 12/01/2019 Telephone [facility] [address] [place] [id number] Carlos Olivares, RT Social History Tobacco Use [...] on filedocumented in this encounter Care Teams Grinder And Plater Relationship Specialty Start Date End Date Eusebio Mccain NP PCP - General Nurse Practitioner 01/10/19 documented as of this encounter
--- OUTSIDE RECORDS SUMMARY | 2025-03-02 16:55 | XMS_ITS | Clinical Summary ---
Author Organization [facility] [employer] [address] Address [address] [place] [address] Care Team Providers Care Cable Installer Repairer Helper Name Role Phone Eusebio Mccain LEATHER SEASONER-SCREEN MAKER Primary Care Pro vider Source Comments [facility] [employer],non-owned Affiliates and Associated Physician Practices is amultiple site organization consisting of ambulatory clinics and hospital sitesin [place], [place], [place] and [place]. This disclosure is being madepursuant to the Care Everywhere program and may not contain all information available regarding this patient. 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
--- OUTSIDE RECORDS SUMMARY | 2025-03-02 16:55 | XMS_ITS | Clinical Summary ---
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 Precordial pain 05/29/2019 Assessment & Plan (05/29/2019 4:19 PM THREAD SPOOLER): I suspect that her pain was referred from her retained biliary stent. However, she did have some exertional components to it. I would like to proceed with exercise stress test to rule out any underlying ischemia given the question of an anomalous coronary artery. 05/29/2019 Assessment & Plan (05/29/2019 4:20 PM THREAD SPOOLER): She has had 4 prior successful pregnancies. [...] - Oxygen Saturation 99% 05/29/2019 11:35 AM THREAD SPOOLER Inhaled Oxygen Concentration - - Weight 66 kg (145 lb 8.1 oz) 12/02/2019 2:26 PM CDT Height 147.3 cm (4' 10) 12/02/2019 2:26 PM CDT Body Mass Index 30.41 12/02/2019 2:26 PM CDT Plan of Treatment Not on file Care Teams Channel Partners Relationship Specialty Start Date End Date Eusebio Mccain NP PCP - General Nurse Practitioner 01/10/19
[2025-03-02 17:02] LABS: Troponin I < 0.012 ng/mL (0.000-0.034)
[2025-03-02 17:24] VITALS: BP 109/78; PULSE 66; RESP 16; TEMP 36.6; O2SAT 98
[2025-03-02 18:38] VITALS: BP 104/68; PULSE 69; RESP 12; O2SAT 100
== END 2025-03-02 18:40 | disposition home or self-care (01) ==
PROVIDERS: Emergency Medicine; Emergency Provider Emergency Medicine; PCP Registered Nurse
DX: R07.89 Other chest pain (principal); D64.9 Anemia, unspecified
CPT/HCPCS: 36415; 71046; 80053; 83690; 84484; 85025; 85380; 85610; 85730; 93005; 96374; 96375; 99284; A9270; J1885